=== PATIENT | male | born 2000 | race Two or more races ===

== ENCOUNTER 2024-01-14 08:25 | Emergency (ER) | payer OTHER ==
[~2024-01-14] VITALS: Ht 177.8 cm; Wt 77.1 kg
[2024-01-14 08:36] VITALS: BP 117/70; PULSE 84; RESP 17; TEMP 97.9; O2SAT 98
[2024-01-14] MEDS: KETOROLAC 60 MG/2 ML VIAL IM ONE (08:49)
[2024-01-14] MEDS ORDERED: ACET-503 PO (09:55)
[2024-01-14] MEDS ORDERED: IBUP-2213 PO (09:55)
[2024-01-14 10:25] VITALS: BP 117/70; PULSE 84; RESP 17; TEMP 97.9; O2SAT 98
== END 2024-01-14 10:25 | disposition home or self-care (01) ==
LOC: MED 08:25
DX: R07.89 Other chest pain (principal); Z90.49 Acquired absence of other specified parts of digestive tract; V89.2XXA Person injured in unspecified motor-vehicle accident, traffic, initial encounter; Y93.89 Activity, other specified; Y92.410 Unspecified street and highway as the place of occurrence of the external cause; Y99.8 Other external cause status
CPT/HCPCS: 71045; 96372; 99283; J1885